=== PATIENT | male | born 2000 | race Asian ===

== ENCOUNTER 2020-02-05 20:05 | Emergency (ER) | payer BC ==
[~2020-02-05] VITALS: Ht 190.5 cm; Wt 93.0 kg
[2020-02-05 20:30] VITALS: BP_SYST 123
[2020-02-05 21:20] LABS: BASOPHILS # (AUTO) 0.1 K/uL (0.0-0.2); BASOPHILS % (AUTO) 0.7 % (0.0-2.0); EOSINOPHILS # (AUTO) 0.3 K/uL (0.0-0.4); EOSINOPHILS % (AUTO) 3.7 % (0.0-4.0); HEMATOCRIT 43.2 % (36-54); HEMOGLOBIN 14.1 g/dL (14.0-18.0); LYMPHOCYTES # (AUTO) 2.1 K/uL (1.0-5.5); LYMPHOCYTES % (AUTO) 24.6 % (20.5-51.5); MEAN CORPUSCULAR HEMOGLOBIN 28 pg (27-31); MEAN CORPUSCULAR HGB CONC 33 % (32-36); MEAN CORPUSCULAR VOLUME 85 fL (79.0-98.0); MONOCYTES # (AUTO) 0.6 K/uL (0.0-1.0); MONOCYTES % (AUTO) 6.6 % (1.7-9.3); NEUTROPHILS # (AUTO) 5.4 K/uL (1.8-7.7); NEUTROPHILS % (AUTO) 64.4 % (40.0-70.0); PLATELET COUNT (AUTO) 252 K/uL (130-430); RED BLOOD CELL COUNT(AUTO) 5.11 MIL/uL (4.2-6.2); RED CELL DISTRIBUTION WIDTH 12.6 % (9.0-15.0); WHITE BLOOD COUNT (AUTO) 8.4 K/uL (4.8-10.8)
[2020-02-05] MEDS: KETOROLAC TROMETHAMINE 30 MG VIAL IM ONE (21:28)
[2020-02-05 21:33] LABS: CALCIUM 8.2 mg/dL (8.4-11.0); CREATININE 1.02 mg/dL (0.55-1.30); POTASSIUM 4.4 mmol/L (3.5-5.1)
[2020-02-05 21:39] LABS: ALBUMIN 3.9 g/dL (3.4-4.8); TOTAL BILIRUBIN 0.7 mg/dL (0.0-1.0)
[2020-02-05] MEDS ORDERED: IOHEXOL 350 mgI/mL, 150 ML INFUS..BTL IV ONE (22:32)
[2020-02-05] MEDS: PANTOPRAZOLE SODIUM 40 MG TAB PO ONE (22:32)
[2020-02-05] MEDS: ACETAMINOPHEN 500 MG TABLET PO ONE (22:33)
[2020-02-05 23:00] VITALS: BP_SYST 123
== END 2020-02-05 23:00 | disposition home or self-care (01) ==
LOC: SED 20:05
DX: R07.89 Other chest pain (principal); M54.2 Cervicalgia; Z71.6 Tobacco abuse counseling
CPT/HCPCS: 36415; 71046; 80053; 85025; 85379; 93005; 96372; 99285; J1885; Q9967

== ENCOUNTER 2023-08-06 08:44 | Emergency (ER) | payer BC ==
[~2023-08-06] VITALS: Ht 190.5 cm; Wt 104.3 kg
[2023-08-06 08:54] VITALS: BP_SYST 138; PULSE 61; RESP 17; TEMP 98.1; O2SAT 97
[2023-08-06 10:38] VITALS: BP_SYST 138; PULSE 61; RESP 17; TEMP 98.1; O2SAT 97
== END 2023-08-06 10:25 | disposition home or self-care (01) ==
LOC: SED 08:44
DX: T17.298A Other foreign object in pharynx causing other injury, initial encounter (principal); Z79.899 Other long term (current) drug therapy; W44.8XXA Other foreign body entering into or through a natural orifice, initial encounter; Y93.89 Activity, other specified; Y92.89 Other specified places as the place of occurrence of the external cause; Y99.8 Other external cause status
CPT/HCPCS: 70490; 99284